=== PATIENT | female | born 1990 | race Caucasian/White ===

== ENCOUNTER 2020-10-08 06:14 | Emergency (ER) | payer OTHER ==
[~2020-10-08] VITALS: Ht 167.6 cm; Wt 72.6 kg
[2020-10-08] MEDS ORDERED: INTESTINEX680 M1 PO (08:05)
[2020-10-08] MEDS ORDERED: AMOX-CLAV 875-1 EACH PO (08:05)
== END 2020-10-08 09:49 | disposition home or self-care (01) ==
LOC: ER 06:14
DX: N76.4 Abscess of vulva (principal); N76.2 Acute vulvitis; B95.61 Methicillin susceptible Staphylococcus aureus infection as the cause of diseases classified elsewhere